=== PATIENT | male | born 1950 ===

== ENCOUNTER 2019-06-30 22:13 | Outpatient (CLI) | payer OTHER | END 2019-06-30 23:59 | disposition EMS.NT | LOC: EMS 22:13 | PROVIDERS: ATTEND Surgery | DX: R53.1 Weakness (principal) ==

== ENCOUNTER 2019-07-02 20:12 | Outpatient (CLI) | payer OTHER | END 2019-07-02 20:13 | disposition short-term general hospital (02) | LOC: EMS 20:12 | PROVIDERS: ATTEND Surgery | DX: N50.819 Testicular pain, unspecified (principal); R53.1 Weakness; R60.0 Localized edema; R00.0 Tachycardia, unspecified | CPT/HCPCS: A0425; A0429 ==